=== PATIENT | female | born 1990 | race Caucasian/White ===

== ENCOUNTER 2019-10-31 16:15 | Emergency (ER) | payer SELFPAY ==
--- NOTE | 2019-10-31 16:57 | EDPHYS ---
Physician Documentation [facility] Name: Anthony Degroot Age: 29 yrs Sex: Female : 1990 Arrival Date: 10/31/2019 Time: 16:18 Bed 4 Private MD: ED Physician Yogesh Law HPI: 10/30 16:53 This 29 yrs old Female presents to ER via Ambulatory with complaints of ma2 Insect Bite. 16:53 Onset: The symptoms/episode began/occurred gradually, 3 day(s) ago. Severity of ma2 symptoms: At their worst the symptoms were very mild in the emergency department the symptoms are unchanged. The patient has not experienced similar symptoms in the past. 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 - Social history:: Smoking status: Reported history of juuling and/or vaping. Patient/guardian denies using alcohol, street drugs, The patient lives with family. - Family history:: not pertinent. ROS: 16:53 Constitutional: Negative for fever, chills, and weight loss. ma2 16:53 All other systems are negative. Exam: 16:53 Constitutional: This is a well developed, well nourished patient who is awake, alert, ma2 and in no acute distress. ENT: Nares patent. No nasal discharge, no septal abnormalities noted. Tympanic membranes are normal and external auditory canals are clear. Oropharynx with no redness, swelling, or masses, exudates, or evidence of obstruction, uvula midline. Mucous membranes moist. Neck: Trachea midline, no thyromegaly or masses palpated, and no cervical lymphadenopathy. Supple, full range of motion without nuchal rigidity, or vertebral point tenderness. No Meningismus. Chest/axilla: Normal chest wall appearance and motion. Nontender with no deformity. No lesions are appreciated. Cardiovascular: Regular rate and rhythm with a normal S1 and S2. No gallops, murmurs, or rubs. Normal PMI, no JVD. No pulse deficits. Respiratory: Lungs have equal breath sounds bilaterally, clear to auscultation and percussion. No rales, rhonchi or wheezes noted. No increased work of breathing, no retractions or nasal flaring. Abdomen/GI: Soft, non-tender, with normal bowel sounds. No distension or tympany. No guarding or rebound. No evidence of tenderness throughout. Skin: left upper arm bite area with induratio naround about 2 mm no flu tuence Warm, dry with normal turgor. Normal color with no rashes, no lesions, MS/ Extremity: Pulses equal, no cyanosis. Neurovascular intact. Full, normal range of motion. Neuro: Awake and alert, GCS 15, oriented to person, place, time, and situation. Cranial nerves II-XII grossly intact. Motor strength 5/5 in all extremities. Sensory grossly intact. Cerebellar exam normal. Normal gait. Vital Signs: 16:22 BP 117 / 77; Pulse 76; Resp 16; Temp 98.4(TE); Pulse Ox 99% ; Weight 56.7 kg; Height 5 sv ft. 2 in. (157.48 cm); 16:22 Body Mass Index 22.86 (56.70 kg, 157.48 cm) sv MDM: 16:24 Patient medically screened. ma2 16:53 Differential Diagnosis cellulitis, insect bite, abrason . Data reviewed: vital signs, oh2 nurses notes. Counseling: I had a detailed discussion with the patient and/or guardian regarding: the historical points, exam findings, and any diagnostic results supporting the discharge/admit diagnosis, the presence of at least one elevated blood pressure reading (>120/80) during this emergency department visit, the need for outpatient follow up. Response to treatment: There is no appreciated change of the patient's symptoms at this time, she declined pain rx . Administered Medications: No medications were administered Disposition: 10/31/19 16:56 Discharged to Home. Impression: Cellulitis of left upper limb. - Condition is Stable. - Discharge Instructions: Cellulitis, Adult. - Prescriptions for Clindamycin HCl 300 mg Oral Capsule - take 1 capsule by ORAL route every 6 hours for 10 days; 40 capsule. - Medication Reconciliation Form, Thank You Letter, Antibiotic Education, Prescription Opioid Use form. - Follow up: Private Physician; When: Tomorrow; Reason: Continuance of care. Signatures: Monique Gibson RN Mimi Worley RN RN ph Alzahri, Mohammad, MD MD ma2 Corrections: (The following items were deleted from the chart) 17:20 16:56 10/31/2019 16:56 Discharged to Home. Impression: Cellulitis of left upper limb. ph Condition is Stable. Forms are Medication Reconciliation Form, Thank You Letter, Antibiotic Education, Prescription Opioid Use. Follow up: Private Physician; When: Tomorrow; Reason: Continuance of care. ma2
--- NOTE | 2019-10-31 16:57 | ER ---
Nurse's Notes [facility] Name: Anthony Degroot Age: 29 yrs Sex: Female : 1990 Arrival Date: 10/31/2019 Time: 16:18 Bed 4 Private MD: Diagnosis: Cellulitis of left upper limb Presentation: 10/30 16:20 Chief complaint: Patient states: unknown insect bite to the left upper arm x 3 days. sv Boyfriend has been giving her an unknown antibiotic. Coronavirus screen: Client denies travel out of the [place] in the last 14 days. At this time, the client does not indicate any symptoms associated with coronavirus-19. Ebola Screen: No symptoms or risks identified at this time. Risk Assessment: Do you want to hurt yourself or someone else? Patient reports no desire to harm self or others. 16:20 Method Of Arrival: Ambulatory sv 16:20 Acuity: SHASHI 4 sv 16:22 Initial Sepsis Screen: Does the patient meet any 2 criteria? No. Patient's initial sv sepsis screen is negative. Does the patient have a suspected source of infection? No. Patient's initial sepsis screen is negative. Onset of symptoms was October 28, 2019. 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 - Social history:: Smoking status: Reported history of juuling and/or vaping. Patient/guardian denies using alcohol, street drugs, The patient lives with family. - Family history:: not pertinent. Screenin:28 Abuse screen: Denies threats or abuse. Denies injuries from another. Nutritional ph screening: No deficits noted. Tuberculosis screening: No symptoms or risk factors identified. Fall Risk None identified. Assessment: 17:18 General: Appears in no apparent distress. comfortable, slender, well groomed, Behavior ph is calm, cooperative, appropriate for age, Denies fever, feeling ill. Pain: Denies pain. Neuro: Level of Consciousness is awake, alert, obeys commands, Oriented to person, place, time, situation. Cardiovascular: Capillary refill < 3 seconds in bilateral fingers. Respiratory: Airway is patent Respiratory effort is even, unlabored. Derm: Skin is intact, is healthy with good turgor, Skin is pink, warm \T\ dry. Musculoskeletal: Circulation, motion, and sensation intact. Range of motion: intact in all extremities. Injury Description: Bite is superficial, from insect slight swelling and redness noted. Vital Signs: 16:22 BP 117 / 77; Pulse 76; Resp 16; Temp 98.4(TE); Pulse Ox 99% ; Weight 56.7 kg; Height 5 sv ft. 2 in. (157.48 cm); 16:22 Body Mass Index 22.86 (56.70 kg, 157.48 cm) sv ED Course: 16:18 Patient arrived in ED. mr 16:21 Triage completed. sv 16:21 Arm band placed on. sv 16:24 Yogesh Law MD is Attending Physician. ma2 16:27 Mimi Madera, RN is Primary Nurse. ph 16:28 Patient has correct armband on for positive identification. Bed in low position. Call ph light in reach. Side rails up X 1. Pulse ox on. NIBP on. Door closed. Noise minimized. Warm blanket given. 17:19 No provider procedures requiring assistance completed. Patient did not have IV access ph during this emergency room visit. Administered Medications: No medications were administered Outcome: 16:56 Discharge ordered by . ma2 17:19 Discharged to home ambulatory. ph 17:19 Condition: good 17:19 Discharge instructions given to patient, Instructed on discharge instructions, follow up and referral plans. medication usage, Demonstrated understanding of instructions, follow-up care, medications, Prescriptions given X 1. 17:20 Patient left the ED. ph Signatures: Monique Gibson RN RN Promise Lord mr Mimi Madera RN RN Rupali Lawrence RN RN 2 Yogesh Law MD MD ma2 Corrections: (The following items were deleted from the chart) 16:24 16:20 Chief complaint: Patient states: unknown insect bite to the left upper arm x sv sv
== END 2019-10-31 17:20 | disposition home or self-care (01) ==
LOC: ER 16:15
DX: L03.114 Cellulitis of left upper limb (principal)
CPT/HCPCS: 99283

== ENCOUNTER 2023-11-26 14:03 | Emergency (ER) | payer SELFPAY ==
[2023-11-26 15:27] LABS: Albumin 3.7 g/dL (3.4-5.0); Albumin/Globulin Ratio 1.1 (1.1-1.8); Anion Gap 8.1 mEq/L (5.0-15.0); Bilirubin Total 0.6 mg/dL (0.2-1.0); Globulin 3.5 g/dL (2.3-3.5); Magnesium 2.1 mg/dL (1.6-2.4); Potassium 4.1 mEq/L (3.5-5.1); Protein, Total 7.2 g/dL (6.4-8.2)
--- NOTE | 2023-11-26 15:31 | ER ---
Nurse's Notes [facility] Name: Anthony Degroot Age: 33 yrs Sex: Female : 1990 Arrival Date: 11/26/2023 Time: 14:03 Bed 10 Private MD: Diagnosis: Cramp and spasm;Pain in left lower leg Presentation: 11/25 14:13 Chief complaint: Patient states: the other night I have these crazy muscle cramps in my iw let ankle and sometimes it happens in my right ankle, works on her feet all day. Coronavirus screen: At this time, the client does not indicate any symptoms associated with coronavirus-19. Ebola Screen: No symptoms or risks identified at this time. Initial Sepsis Screen: Does the patient meet any 2 criteria? No. Patient's initial sepsis screen is negative. Does the patient have a suspected source of infection? No. Patient's initial sepsis screen is negative. Risk Assessment: Do you want to hurt yourself or someone else? Patient reports no desire to harm self or others. Onset of symptoms. 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 - Infectious Disease History:: Denies. - Social history:: Smoking status: unknown. Screenin:46 [facility] ED Fall Risk Assessment (Adult) History of falling in the last 3 months, ap3 including since admission No falls in past 3 months (0 pts) Confusion or Disorientation No (0 pts) Intoxicated or Sedated No (0 pts) Impaired Gait No (0 pts) Mobility Assist Device Used No (0 pt) Altered Elimination No (0 pt) Score/Fall Risk Level 0 - 2 = Low Risk Oriented to surroundings, Maintained a safe environment, Educated pt \T\ family on fall prevention, incl call for assistance when getting out of bed, Assessed \T\ reinforced patient's understanding of fall precautions, Hourly rounding (assess needs \T\ fall precautionary measures) done, Used ambulatory aids as needed (educated on \T\ assisted with), Used gait belt as appropriate. Abuse screen: Denies threats or abuse. Nutritional screening: No deficits noted. Tuberculosis screening: No symptoms or risk factors identified. Assessment: 15:45 General: Appears in no apparent distress. Behavior is calm, cooperative, appropriate ap3 for age. Pain: Complains of pain in left leg. Neuro: Level of Consciousness is awake, alert, obeys commands, Oriented to person, place, time, situation, Appropriate for age. Cardiovascular: Patient's skin is warm and dry. Respiratory: Airway is patent Respiratory effort is even, unlabored, Respiratory pattern is regular, symmetrical. Vital Signs: 14:13 BP 125 / 92; Pulse 83; Resp 16; Temp 97.1; Pulse Ox 100% ; iw ED Course: 14:06 Patient arrived in ED. iw 14:09 [facility]endariz [facility]C [facility]. kb 14:09 Nakul Huffman MD is Attending Physician. kb 14:15 Triage completed. iw 14:59 Magnesium Sent. bc6 14:59 CMP Sent. bc6 14:59 Initial lab(s) drawn, by me, sent to lab. bc6 15:02 Arm band placed on. iw 15:02 Patient has correct armband on for positive identification. iw 15:46 No provider procedures requiring assistance completed. Patient did not have IV access ap3 during this emergency room visit. 15:46 Provided Education on: discharge instructions . ap3 Administered Medications: No medications were administered Medication: 15:47 VIS not applicable for this client. ap3 Outcome: 15:30 Discharge ordered by . kb 15:46 Discharged to home ambulatory, ap3 15:46 Condition: good 15:46 Discharge instructions given to patient, Instructed on discharge instructions, follow up and referral plans. medication usage, Demonstrated understanding of instructions, follow-up care, medications, Prescriptions given X 1, 15:47 Patient left the ED. ap3 Signatures: Pam Armendariz FNP-C FNP-Danita Garcia RN FIORELLA Charlene Rader RN RN ap3 Emmy Abarham [facility]
--- NOTE | 2023-11-26 15:31 | EDPHYS ---
Physician Documentation [facility] Name: Anthony Degroot Age: 33 yrs Sex: Female : 1990 Arrival Date: 11/26/2023 Time: 14:03 Bed 10 Private MD: ED Physician Nakul Huffman HPI: 11/25 15:29 This 33 yrs old Female presents to ER via Ambulatory with complaints of Leg Pain. kb 15:29 Pt is a 33 year old female who presents for bilateral leg cramping that started about a kb week ago. Today she has had pain and some swelling to left schwab. Denies injury or trauma. 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 - Infectious Disease History:: Denies. - Social history:: Smoking status: unknown. ROS: 14:55 Constitutional: As per HPI kb Exam: 14:55 Constitutional: This is a well developed, well nourished patient who is awake, alert, kb and in no acute distress. Head/Face: Normocephalic, atraumatic. ENT: Moist Mucous membranes Cardiovascular: Regular rate Respiratory: Respirations even and unlabored. No increased work of breathing. Talking in full sentences Abdomen/GI: Soft, non-tender. No distention Skin: Warm, dry with normal turgor. Normal color. MS/ Extremity: Pulses equal, no cyanosis. Neurovascular intact. Full, normal range of motion. Neuro: Awake and alert, GCS 15, oriented to person, place, time, and situation. Moves all extremities. Normal gait. Vital Signs: 14:13 BP 125 / 92; Pulse 83; Resp 16; Temp 97.1; Pulse Ox 100% ; iw MDM: 14:09 Patient medically screened. kb 14:56 Differential diagnosis: dvt, strain, sprain, cramps, abnormal electrolytes. Data kb reviewed: vital signs, nurses notes. Test considered but Not performed: Ultrasound us bilateral lower extremities considered but pt prefers not to have US at this time. Will accept blood work. 15:28 Counseling: I had a detailed discussion with the patient and/or guardian regarding the kb historical points, exam findings, and any diagnostic results supporting the discharge/admit diagnosis, lab results, the need for outpatient follow up, a orthopedic surgeon, to return to the emergency department if symptoms worsen or persist or if there are any questions or concerns that arise at home. 11/25 14:19 Order name: CMP; Complete Time: 15:28 kb 11/25 14:19 Order name: Magnesium; Complete Time: 15:28 kb Administered Medications: No medications were administered Disposition Summary: 11/26/23 15:30 Discharge Ordered Notes: Location: Home kb Condition: Stable kb Diagnosis - Cramp and spasm kb - Pain in left lower leg kb Followup: kb - With: Emergency Department - When: As needed - Reason: Worsening of condition Followup: kb - With: Private Physician - When: 2 - 3 days - Reason: Recheck today's complaints, Continuance of care, Re-evaluation by your physician Discharge Instructions: - Discharge Summary Sheet kb - Leg Cramps kb - Musculoskeletal Pain kb - Muscle Cramps and Spasms, [id number] kb Forms: - Medication Reconciliation Form kb - Antibiotic Education kb - Prescription Opioid Use kb - Patient Portal Instructions kb - Leadership Thank You Letter kb Prescriptions: - orphenadrine citrate 100 mg Oral Tablet Sustained Release - take 1 tablet ORAL route 2 times per day As needed; 20 tablet; Refills: 0, kb Product Selection Permitted Addendum: 11/29/2023 15:49 Co-signature as Attending Physician, Nakul Huffman MD I agree with the assessment and c vargas plan of care. Signatures: Dispatcher [employer] Pam Fuller, ADMIN DIR-C ADMIN DIR-Nakul Escobedo MD MD cha Williams, Irene, RN Charlene Rivera RN RN ap3
[2023-11-26 16:20] VITALS: BP 125/92; TEMP 97.1; O2SAT 100
== END 2023-11-26 15:47 | disposition home or self-care (01) ==
LOC: ER 14:03
DX: R25.2 Cramp and spasm (principal)
CPT/HCPCS: 36415; 80053; 83735; 99283